=== PATIENT | female | born 1975 | race Caucasian/White ===

== ENCOUNTER 2019-06-19 11:32 | Emergency (ER) | payer OTHER ==
--- NOTE | 2019-06-19 12:06 | UC ---
Respiratory Complaint HPI - HPI Summary HPI Summary: Cough, sinus congestion and body aches x5 days. Feels sinus pressure building. denies fever. +sick contact at home. has already missed days at work. did not get flu shot this year. - History of Current Complaint Chief Complaint: UCRespiratory Stated Complaint: COUGH/ GERNERAL ILLNESS/DIZZY Time Seen by Provider: 06/19/19 11:39 Hx Obtained From: Patient Hx Last Menstrual Period: 06/17/19, tubal ligation Pain Intensity: 7 Pain Scale Used: 0-10 Numeric Character: Cough: Nonproductive Aggravating Factors: Nothing Alleviating Factors: Nothing - Allergies/Home Medications Allergies/Adverse Reactions: Allergies Allergy/AdvReac Type Severity Reaction Status Date / Time No Known Allergies Allergy Verified 06/19/19 11:40 PMH/Surg Hx/FS Hx/Imm Hx Previously Healthy: Yes - Surgical History Surgical History: Yes Surgery Procedure, Year, and Place: L breast cyst removal. APPENDECTOMY 2005. TUBAL LIGATION 05/1998. Rt FOOT - BUNIONECTOMY -2004 - Family History Known Family History: Positive: Other - Breast CA - Social History Alcohol Use: Occasionally Substance Use Type: None Smoking Status (MU): Never Smoked Tobacco - Immunization History Most Recent Influenza Vaccination: none Review of Systems All Other Systems Reviewed And Are Negative: Yes Constitutional: Negative: Fever, Chills, Fatigue Skin: Negative: Rash ENT: Positive: Nasal Discharge, Sinus Congestion, Sinus Pain/Tenderness, Other - +post nasal drip. Negative: Dental Pain, Sore Throat, Ear Ache Respiratory: Positive: Cough. Negative: Shortness Of Breath Cardiovascular: Negative: Chest Pain Gastrointestinal: Negative: Vomiting Neurological: Negative: Headache Physical Exam Triage Information Reviewed: Yes Appearance: Well-Appearing Vital Signs: Initial Vital Signs Temp 98.3 F 06/19/19 11:36 Pulse 82 06/19/19 11:36 Resp 18 06/19/19 11:36 BP 179/97 06/19/19 11:36 Pulse Ox 99 06/19/19 11:36 Vital Signs Reviewed: Yes Eyes: Positive: Conjunctiva Clear ENT: Positive: Pharynx normal, TMs normal, Sinus tenderness - minimal L side, Uvula midline. Negative: Dental tenderness Neck: Positive: Supple, Nontender, No Lymphadenopathy Respiratory Exam: Normal Cardiovascular Exam: Normal Neurological: Positive: Alert Skin: Negative: Rashes Respiratory Course/Dx - Course Course Of Treatment: Sinusitis and overall URI symptoms x5 days. Exam had some mild sinus tenderness but no signs of pneumonia. did not get flu shot this year. have sent antibx although we disc that this has side effects and may not be effective. blood pressure was rechecked and still high so she will discuss w/ her pcp. - Differential Dx/Diagnosis Differential Diagnosis/HQI/PQRI: Lower Resp Infection, Sinusitis, Other Provider Diagnosis: Sinusitis Discharge ED - Sign-Out/Discharge Documenting (check all that apply): Patient Departure All imaging exams completed and their final reports reviewed: No Studies - Discharge Plan Condition: Good Disposition: HOME Prescriptions: Amoxicillin/Clavulanate TAB* [Augmentin TAB 500 mg*] 500 mg PO BID 7 Days #14 tab Patient Education Materials: Rhinosinusitis (ED) Forms: *Work Release Referrals: Luz Duvall MD [Primary Care Provider] - Additional Instructions: I do think you have a viral infection but I have sent the antibiotics which may not be effective should you need it. - Billing Disposition and Condition Condition: GOOD Disposition: Home
[2019-06-19 12:14] VITALS: BP 162/104
== END 2019-06-19 12:15 | disposition home or self-care (01) ==
LOC: UCEAST 11:32
DX: J32.9 Chronic sinusitis, unspecified (principal)
CPT/HCPCS: 99212; G0463

== ENCOUNTER 2019-10-27 08:29 | Emergency (ER) | payer OTHER ==
--- OUTSIDE RECORDS SUMMARY | 2019-10-27 08:40 | XMS REPORT | Continuity of Care Document ---
:1975 External Reference #:[id number] Author Name Neeta Soliman NP Address [address] [place] [address] Care Team Providers Name Role Phone Luz Duvall - Family Medicine Care Team Information Patient Scheduling Coordinator Errol Purvis pt - Physical Therapist Care Team Information Patient Scheduling Coordinator [phone] Mercedez Fofana MD - Surgery Care Team Information Patient Scheduling Coordinator [phone] Problems Active Problems Provider Date Neck pain Karis Milligan M.D. Onset: 11/17/2011 Eczematous dermatitis of eyelid Karis Milligan M.D. Onset: 06/16/2011 Social History Type Date Description Comments Sex Unknown Tobacco Use Start: Unknown Nonsmoker Tobacco Use Start: Unknown Patient has never smoked Allergies, Adverse Reactions, Alerts Description No Known Drug Allergies Medications Active Medications SIG Qnty Indications Ordering Provider Date Multivitamin Gummies qd Unknown Womens Chewtabs Melatonin 1 by mouth every Unknown 10mg Capsules at bedtime Immunizations CPT Code Status Date Vaccine Lot # [id number] Given 06/30/2017 Tdap Tetanus, W Pertussis [id number] Vital Signs Date Vital Result Comment 10/01/2019 10:51am BP Systolic 148 mmHg BP Diastolic 96 mmHg Heart Rate 74 /min Body Temperature 98.8 F Respiratory Rate 15 /min O2 % BldC Oximetry 97 % Ra Height 63 inches 5'3" Weight 117.00 lb BMI (Body Mass Index) 20.7 kg/m2 12/15/2018 10:47am BP Systolic 146 mmHg BP Diastolic 86 mmHg Heart Rate 82 /min Body Temperature 98.6 F Respiratory Rate 16 /min Height 63 inches 5'3" Weight 130.00 lb BMI (Body Mass Index) 23.0 kg/m2 Results Test Acquired Date Facility Test Result H/L Range Note Flu A&B (Fma) 10/01/2019 family medicine Influenza A neg (607)- - Influenza B neg Procedures Date Code Description Status 05/12/2016 [id number] Mammogram Completed Medical Devices Description No Information Available Encounters Description No Information Available Assessments Date Code Description Provider 10/01/2019 J06.9 Acute upper respiratory infection, unspecified Neeta Soliman NP Plan of Treatment 10/01/2019 - Neeta Soliman, SOLOJ06.9 Acute upper respiratory infection, unspecifiedComments:Call or return if you develop new fever, trouble breathing, sudden worsening, or pain in the ears, face, or chest . While the symptoms of upper respiratory infections are uncomfortable and can take a long time to go away, they rarely present significant danger. Use a humidifier at night and drink plenty of fluids during the day. Ibuprofen or tylenol are good for headaches and sore throats. Other cough and cold remedies, such as guaifenesin or phenylephrine, will not help you get better any faster. They can temporarily help with symptoms, but you should only continue to take them if you actually experience some relief within a couple hours of taking a dose. It is normal to cough for 2-3 weeks. You should be re-evaluated at the office if your cough persists longer or if you have a cough with fever,wheezing, or worsening pain.AllComments:1. Patient has been queried about patient's goals/preferences and functional/lifestyle goals at relevant visits. If relevant, describe: Has been discussed, noted above2. Treatment goals as explainedto the patient: see above3. Are there barriers to meeting treatment goals? Yes If Yes, please describe: Barriers include possible insurance limits, disease process, and difficulty with lifestyle changes4. Self-Management goals as described to the patient: Yes, see above As always, we strongly encourage a healthy diet and making physical activity a part of your every day life. If you have questions about how or where to start, please contact the office. Functional Status Description No Information Available Mental Status Description No Information Available Referrals Description No Information Available
--- OUTSIDE RECORDS SUMMARY | 2019-10-27 08:40 | XMS REPORT | Continuity of Care Document ---
:1975 External Reference #:[id number] Author Name Neeta Soliman NP Address [address] [place] [address] Care Team Providers Name Role Phone Luz Duvall - Family Medicine Care Team Information Morning Nanny Errol Purvis pt - Physical Therapist Care Team Information Morning Nanny [phone] Mercedez Fofana MD - Surgery Care Team Information Morning Nanny [phone] Problems Active Problems Provider Date Neck pain [...] CPT Code Status Date Vaccine Lot # [id number] Given 06/30/2017 Tdap Tetanus, W Pertussis [id number] [...] BMI (Body Mass Index) 23.0 kg/m2 Results Description No Information Available Procedures Date Code Description Status 05/12/2016 [id number] Mammogram Completed Medical Devices Description No Information Available Encounters Description No Information Available Assessments Description No Information Available Plan of Treatment 10/01/2019 - Timmy CarltonComments:1. Patient has been queried about patient's goals/preferences and functional/lifestyle goals at relevant visits. If relevant, describe: Has been discussed, noted above2. Treatment goals as explainedto the patient: see above3. Are there barriers to meeting treatment goals? Yes If Yes, please describe: Barriers include possible insurance limits, disease process, and difficulty with lifestyle changes4. Self -Management goals as described to the patient: Yes, [...]
[2019-10-27] MEDS ORDERED: Morphine 4 MG/ML VIAL (1 ml) 4 MG/ML VIAL IV ONE (08:46)
[2019-10-27] MEDS ORDERED: NS 0.9% 1000 ML** 2,000 ML IV ONE (08:47)
[2019-10-27] MEDS ORDERED: Ondansetron INJ* 2 MG/ML VIAL IV ONE (08:47)
--- NOTE | 2019-10-27 08:48 | ED ---
GI/ HPI - HPI Summary HPI Summary: 44 year old female presents with abdominal pain today. States that her period was 2 weeks late. She states her period is normally very consistent and comes every 28 days and lasts 7 days. States her bleeding is not normally this heavy. She states that last time this happened she had a ruptured ovarian cysts. States the bleeding started 2 days ago and was very heavy. She has been changing her pad every hour. She has been passing small clots. She states pain started this morning. She states the pain is present in left lower quadrant. She has a history of her tubes tied. No abdominal surgeries. No diarrhea. she states that she felt feverish. She states the pain is severe. She feels dizzy and weak. States that feels dizzy and almost like she is going to passed out when she stands up. She admits to palpitations. She has no medical conditions. Is not on blood thinners. - History of Current Complaint Chief Complaint: EDAbdPain Time Seen by Provider: 10/27/19 08:36 Stated Complaint: HEAVY MENSTRUATION PER PT Hx Last Menstrual Period: 06/17/19, tubal ligation Pain Intensity: 10 - Allergy/Home Medications Allergies/Adverse Reactions: Allergies Allergy/AdvReac Type Severity Reaction Status Date / Time No Known Allergies Allergy Verified 10/27/19 08:34 Home Medications: Home Medications DOXYcycline CAP(*) [DOXYcycline 100MG CAP(*)] 100 mg PO BID #19 cap 10/27/19 [Rx ] HYDROcodone/ACETAMIN 5-325 MG* [[place] 5-325 TAB*] 1 tab PO Q6H PRN #12 tab MDD 4 10/27/19 [Rx] Omeprazole 20 mg PO DAILY #13 capsule. 10/27/19 [Rx] PMH/Surg Hx/FS Hx/Imm Hx Endocrine/Hematology History: Denies: Hx Diabetes Cardiovascular History: Denies: Hx Hypertension, Hx Pacemaker/ICD History: Denies: Hx Renal Disease Musculoskeletal History: Denies: Hx Rheumatoid Arthritis, Hx Osteoporosis Sensory History: Denies: Hx Hearing Aid Psychiatric History: Denies: Hx Panic Disorder - Cancer History Hx Chemotherapy: No Hx Radiation Therapy: No - Surgical History Surgery Procedure, Year, and Place: L breast cyst removal. APPENDECTOMY 2005. TUBAL LIGATION 05/1998. Rt FOOT - BUNIONECTOMY -2004 Infectious Disease History: No Infectious Disease History: Denies: Traveled Outside the [place] in Last 30 Days - Family History Known Family History: Positive: Other - Breast CA - Social History Alcohol Use: None Substance Use Type: Reports: None Smoking Status (MU): Never Smoked Tobacco Review of Systems Negative: Fever Negative: Chest Pain Negative: Shortness Of Breath Positive: Abdominal Pain, Vomiting, Nausea. Negative: Diarrhea All Other Systems Reviewed And Are Negative: Yes Physical Exam Triage Information Reviewed: Yes Vital Signs On Initial Exam: Initial Vitals Temp Pulse Resp BP Pulse Ox 97.2 F 60 16 105/35 100 10/27/19 08:30 10/27/19 08:30 10/27/19 08:30 10/27/19 08:30 10/27/19 08:30 Vital Signs Reviewed: Yes Appearance: Positive: Well-Appearing Skin: Positive: Warm, Dry Head/Face: Positive: Normal Head/Face Inspection Eyes: Positive: Normal, Conjunctiva Clear ENT: Positive: Pharynx normal Respiratory/Lung Sounds: Positive: Clear to Auscultation, Breath Sounds Present Cardiovascular: Positive: Normal, RRR Abdomen Description: Positive: Soft, Other: - tenderness in LLQ Bowel Sounds: Positive: Present Pelvic Exam: Positive: External Exam Normal, No Cerv. Motion Tender, No Masses, Blood, Tender Adnexa - ;eft Musculoskeletal: Positive: Normal Neurological: Positive: Normal Psychiatric: Positive: Normal Procedures - Sedation Patient Received Moderate/Deep Sedation with Procedure: No Diagnostics - Vital Signs Vital Signs Temp Pulse Resp BP Pulse Ox 10/27/19 08:30 97.2 F 60 16 105/35 100 - Laboratory Result Diagrams: 10/27/19 09:10 10/27/19 08:45 Lab Statement: Any lab studies that have been ordered have been reviewed, and results considered in the medical decision making process. - CT abd CT Interpretation Completed By: Radiologist Summary of CT Findings: IMPRESSION: Wall thickening of the gastric antrum which may represent gastritis and clinical correlation is suggested. The portal veins appear patent. No other masses or fluid collections are noted. Urinary bladder is distended. - Ultrasound No standard instances Ultrasound Interpretation Completed By: Radiologist Summary of Ultrasound Findings: IMPRESSION: 1. In the left adnexa there is a hypoechoic nonvascular tubular structure. The differential for this includes a dilated fallopian tube- please correlate to signs or symptoms of salpingitis/ obstruction. 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 Please correlate to a history of pelvic congestion syndrome which is characterized by intermittent, gravity dependent pelvic pain, dysmenorrhea, dyspareunia and varicose veins of the lower extremities and pelvis. If the latter description correlates to the patient's history, superior characterization could BE made with contrast enhanced portal venous CT of the abdomen and pelvis. 2. Small subserosal uterine fibroid of doubtful clinical significance. Re-Evaluation - Re-Evaluation First Eval Re-Evaluation Time: 11:45 Change: Improved Comment: tenderness on left adenxal on pelvic, no CMT, pain improved GIGU Course/Dx - Course Course Of Treatment: 44 year old female presents with abdominal pain today. States that her period was 2 weeks late. She states her period is normally very consistent and comes every 28 days and lasts 7 days. States her bleeding is not normally this heavy. She states that last time this happened she had a ruptured ovarian cysts. States the bleeding started 2 days ago and was very heavy. She has been changing her pad every hour. She has been passing small clots. She states pain started this morning. She states the pain is present in left lower quadrant. She has a history of her tubes tied. No abdominal surgeries. No diarrhea. she states that she felt feverish. She states the pain is severe. She feels dizzy and weak. States that feels dizzy and almost like she is going to passed out when she stands up. She admits to palpitations. She has no medical conditions. Is not on blood thinners. On exam tenderness left lower quadrant. Patient appears uncomfortable. wbc 3.4. hemoglobin 11.2. crp 8. pelvic tenderness left adenxal only. u/s shows possible enlarged fallopian tube or could be thrombosis pelvic vein. discussed with dr aguilar will get CT. Ct shows potential gastritis which patient admits has been using antacids and has had intermittent epigastric pain. Will treat with omeprazole. discussed with dr. Aguilar will treat potential salphingitis. Will give dose of Rocephin and place on Doxy. told follow up with electrogalvanizing machine operator. Warned signs to return to ER for. Patient understands and agrees the plan. - Diagnoses Differential Diagnoses - Female: Ectopic , Ovarian Cyst, Ovarian Torsion Provider Diagnoses: Abdominal pain, Gastritis, Salpingitis Discharge ED - Sign-Out/Discharge Documenting (check all that apply): Patient Departure - Discharge Plan Condition: Good Disposition: HOME Prescriptions: DOXYcycline CAP(*) [DOXYcycline 100MG CAP(*)] 100 mg PO BID #19 cap HYDROcodone/ACETAMIN 5-325 MG* [[place] 5-325 TAB*] 1 tab PO Q6H PRN #12 tab MDD 4 PRN Reason: Pain - Severe Omeprazole 20 mg PO DAILY #13 capsule.dr Forms: *Work Release Referrals: Luz Duvall MD [Primary Care Provider] - Bertram Espinal MD [Medical Doctor] - Additional Instructions: take doxycycline twice a day for 10 days take omeprazole once a day for 13 days Take tyenlol or ibuprofen every 6 hours for pain, use norco every 6 hours for break through pain Follow up with electrogalvanizing machine operator Return to ED if develop any new or worsening symptoms - Billing Disposition and Condition Condition: GOOD Disposition: Home
[2019-10-27 09:17] LABS: INR 1.09 (0.82-1.09)
[2019-10-27 09:21] LABS: ABS Lymphocytes 0.4 10^3/ul (1.0-4.8); ABS Monocytes 0.2 10^3/ul (0-0.8); ABS Neutrophils 2.8 10^3/ul (1.5-7.7); Eosinophil % 0.3 %; Hematocrit 34 % (35-47); Hemoglobin 11.2 g/dL (12.0-16.0); Lymphocyte % 11.6 %; Mean Corpuscular HGB Conc 33 g/dL (31-36); Mean Corpuscular Hemoglobin 26 pg (27-31); Mean Corpuscular Volume 79 fL (80-97); Mean Platelet Volume 7.2 fL (7.4-10.4); Platelet Count 178 10^3/uL (150-450); Red Blood Count 4.34 10^6 /uL (3.70-4.87); Red Cell Distribution Width 16 % (10-15); White Blood Count 3.4 10^3/uL (3.5-10.8)
[2019-10-27 09:30] LABS: ALT 30 U/L (7-52); AST 32 U/L (13-39); Albumin/Globulin Ratio 1.5 (1-3); Alkaline Phosphatase 93 U/L (34-104); Anion Gap 9 mmol/L (2-11); BUN/Creatinine Ratio 19.2 (8-20); Blood Urea Nitrogen 23 mg/dL (6-24); C Reactive Protein 8.44 mg/L (<8.01); CO2 Carbon Dioxide 26 mmol/L (22-32); Calcium 8.5 mg/dL (8.6-10.3); Chloride 104 mmol/L (101-111); EGFR African American 58.8 (>60); EGFR Non-African American 48.6 (>60); Globulin 2.7 g/dL (2-4); Glucose 133 mg/dL (70-100); Potassium 3.3 mmol/L (3.5-5.0); Sodium 139 mmol/L (135-145); Total Protein 6.7 g/dL (6.4-8.9)
[2019-10-27 09:34] LABS: HCG Pregnancy < 0.60 mIU/mL
[2019-10-27 11:00] LABS: Urine Appearance Cloudy; Urine Color Red; Urine Specific Gravity 1.012 (1.010-1.030)
[2019-10-27 11:10] LABS: Urine Bacteria Absent (Absent); Urine Red Blood Cell 3+(>10/hpf) (Absent); Urine White Blood Cell 1+(6-10/hpf) (Absent)
[2019-10-27] MEDS ORDERED: Iodixanol* (CONTRAST) 320 MG/ML 100 ML SDV IV ONE (11:45)
[2019-10-27] MEDS ORDERED: Lidocaine 1% MPF ** 5 ML VIAL IM ONE (14:16)
[2019-10-27] MEDS ORDERED: cefTRIAXone VIAL(*) 250 MG VIAL IM ONE (14:16)
[2019-10-27] MEDS ORDERED: Omeprazole CAP (NF) 20 MG CAP.DR PO ONE (14:16)
[2019-10-27] MEDS ORDERED: DOXYcycline CAP(*) 100 MG PO ONE (14:16)
[2019-10-27 14:59] VITALS: BP 148/95
[2019-10-28 13:13] LABS: Chlamydia trachomatis NAA Negative (Negative); Neisseria gonorrhoeae (GC) NAA Negative (Negative)
[2019-10-28 13:28] LABS: Trichomonas vag NAA Female Negative (Negative)
== END 2019-10-27 14:50 | disposition home or self-care (01) ==
LOC: ED 08:29
DX: K29.70 Gastritis, unspecified, without bleeding (principal); N70.91 Salpingitis, unspecified; Z90.89 Acquired absence of other organs; Z98.51 Tubal ligation status; Z79.899 Other long term (current) drug therapy
CPT/HCPCS: 36415; 74177; 76830; 80053; 81003; 83605; 83690; 84702; 85025; 85610; 86140; 87086; 87480; 87491; 87510; 87591; 87661; 96361; 96372; 96374; 96375; 99284; A9270-GY; J0696; J2270; J2405; Q9967